=== PATIENT | female | born 1995 | race Caucasian/White ===

== ENCOUNTER 2017-05-06 17:05 | Observation (INO) | payer OTHER | END 2017-05-06 18:15 | disposition home or self-care (01) | LOC: INTOOBSV 17:05 → L&D 17:05 | PROVIDERS: ADMIT Obstetrics & Gynecology; ATTEND Obstetrics & Gynecology | DX: O26.893 Other specified pregnancy related conditions, third trimester (principal); R10.9 Unspecified abdominal pain; Z3A.35 35 weeks gestation of pregnancy | CPT/HCPCS: 76805; G0378; 76815 ==

== ENCOUNTER 2017-05-18 01:34 | Inpatient (IN) | payer OTHER ==
[~2017-05-18] VITALS: Ht 154.9 cm; Wt 82.6 kg
[2017-05-18] MEDS ORDERED: LACTATED RINGERS 1,000 ML IV SCH (03:13)
[2017-05-18] MEDS ORDERED: PREN1TAB78 PO (03:14)
[2017-05-18] MEDS ORDERED: MAGN400C PO (03:14)
[2017-05-18] MEDS ORDERED: LIDOCAINE HCL 1% 20ML VIAL (Pyxis) INJ INFIL SCH (03:15)
[2017-05-18] MEDS ORDERED: BUTORPHANOL TARTRATE 2 MG/ML VIAL IV PRN (03:15)
[2017-05-18] MEDS ORDERED: CARBOPROST TROMETHAMINE 250 MCG/ML AMPUL IM PRN (03:15)
[2017-05-18] MEDS ORDERED: NALOXONE HCL 0.4 MG/ML 1ML VIAL IM PRN (03:15)
[2017-05-18] MEDS ORDERED: METHYLERGONOVINE MALEATE 0.2 MG/ML IM PRN (03:15)
[2017-05-18 04:07] LABS: BASOPHILS % 0.4 % (0.0-2.0); EOSINOPHILS % 0.5 % (0.0-5.0); HEMOGLOBIN. 11.7 g/dL (12.0-16.0); LYMPHOCYTES % 32.1 % (20.0-50.0); MEAN CORPUSCULAR HEMOGLOBIN 30.3 pg (28.0-32.0); MEAN CORPUSCULAR VOLUME 90.5 fL (81.0-99.0); MEAN PLATELET VOLUME 8.9 fl (7.4-10.4); MONOCYTES % 7.1 % (2.0-8.0); NEUTROPHILS % 59.9 % (40.0-76.0); PLATELET 203 x1000/uL (130-400); RED BLOOD CELL COUNT 3.87 mill/uL (4.2-5.4); RED CELL DISTRIBUTION WIDTH 13.9 % (11.6-14.6)
[2017-05-18 04:14] LABS: CLARITY URINE CLEAR (CLEAR); COLOR URINE YELLOW (YELLOW); GLUCOSE URINE NEGATIVE (NEGATIVE); KETONES URINE NEGATIVE (NEGATIVE); LEUKOCYTE ESTERASE URINE TRACE (NEGATIVE); NITRITE URINE NEGATIVE (NEGATIVE); OCCULT BLOOD URINE 1+ (NEGATIVE); PH URINE 6.5 (4.5-8.0); PROTEIN URINE NEGATIVE (NEGATIVE); SPECIFIC GRAVITY URINE 1.012 (1.005-1.030); UROBILINOGEN URINE 0.2 E.U./dL (0.2-1.0)
[2017-05-18 04:21] LABS: PARTIAL THROMBOPLASTIN TIME 28.7 sec (23.4-31.0); PROTHROMBIN TIME 10.1 sec (9.4-11.6)
[2017-05-18 04:37] LABS: *AMPHETAMINES SCREEN URINE NEGATIVE (NEGATIVE); *BARBITURATES SCREEN URINE NEGATIVE (NEGATIVE); *BENZODIAZEPINES SCREEN URINE NEGATIVE (NEGATIVE); *COCAINE SCREEN URINE NEGATIVE (NEGATIVE); CANNABINOID URINE SCREEN NEGATIVE (NEGATIVE); METHADONE URINE SCREEN NEGATIVE (NEGATIVE); OPIATES URINE SCREEN NEGATIVE (NEGATIVE); PHENCYCLIDINE URINE SCREEN NEGATIVE (NEGATIVE)
[2017-05-18] MEDS: DEXT 5%/LR + PITOCIN 20UNITS/L 1,000 ML IV SCH ×2 (04:45→06:02)
[2017-05-18] MEDS ORDERED: DEXT 5%/LR + PITOCIN 20UNITS/L 1,000 ML IV SCH (05:41)
[2017-05-18] MEDS ORDERED: LANOLIN OINT 0.25 GM TUBE TOP PRN (05:45)
[2017-05-18] MEDS ORDERED: IBUPROFEN 400MG TABLET PO PRN (05:45)
[2017-05-18] MEDS ORDERED: GLYCERIN/WITCH HAZEL LEAF MEDICATED PAD TOP PRN (05:45)
[2017-05-18] MEDS ORDERED: BENZOCAINE/LANOLIN/ALOE VERA SPRAY TOP PRN (05:45)
[2017-05-18] MEDS ORDERED: ACETAMINOPHEN WITH CODEINE 300/30MG TABLET PO PRN ×2 (05:45)
[2017-05-18 08:05] VITALS: BP 119/63
[2017-05-18] MEDS: SIMETHICONE 80MG TABLET CHEW PO SCH ×4 (08:20→20:22)
[2017-05-18] MEDS: MAGNESIUM/ALUMINUM HYDROXIDE/SIMETHICONE 30ML UDC PO SCH ×3 (08:20→20:21)
[2017-05-18 08:38] VITALS: BP 106/66
[2017-05-18] MEDS: PRENATAL VIT/FE FUMARATE/FA TABLET PO SCH (08:47)
[2017-05-18 09:00] VITALS: BP 106/66
[2017-05-18] MEDS ORDERED: BISACODYL 10MG SUPP PR PRN (09:00)
[2017-05-18 13:00] LABS: HEPATITIS B SURFACE ANTIGEN NEGATIVE; RUBELLA IGG 28.1 IU/mL (4.99-10)
[2017-05-18 16:45] VITALS: BP 114/61
[2017-05-18 20:00] VITALS: BP 111/69
[2017-05-18] MEDS: DOCUSATE SODIUM 100MG CAPSULE PO SCH (20:20)
[2017-05-19 05:00] VITALS: BP 108/68
[2017-05-19 06:55] LABS: BASOPHILS % 0.6 % (0.0-2.0); EOSINOPHILS % 0.6 % (0.0-5.0); HEMATOCRIT. 33.1 % (36.0-48.0); HEMOGLOBIN. 11.1 g/dL (12.0-16.0); LYMPHOCYTES % 39.1 % (20.0-50.0); MEAN CORPUSCULAR HEMOGLOBIN 30.7 pg (28.0-32.0); MEAN CORPUSCULAR VOLUME 91.6 fL (81.0-99.0); MEAN PLATELET VOLUME 8.2 fl (7.4-10.4); MONOCYTES % 4.1 % (2.0-8.0); NEUTROPHILS % 55.6 % (40.0-76.0); PLATELET 190 x1000/uL (130-400); RED BLOOD CELL COUNT 3.61 mill/uL (4.2-5.4); RED CELL DISTRIBUTION WIDTH 14.2 % (11.6-14.6)
[2017-05-19 07:50] VITALS: BP 112/72
[2017-05-19] MEDS: SIMETHICONE 80MG TABLET CHEW PO SCH ×4 (08:20→21:13)
[2017-05-19] MEDS: PRENATAL VIT/FE FUMARATE/FA TABLET PO SCH (08:20)
[2017-05-19] MEDS: MAGNESIUM/ALUMINUM HYDROXIDE/SIMETHICONE 30ML UDC PO SCH ×3 (08:20→18:03)
[2017-05-19] MEDS: FERROUS SULFATE 325MG TABLET PO SCH ×2 (13:01→18:03)
[2017-05-19 15:50] VITALS: BP 114/76
[2017-05-19 20:00] VITALS: BP 119/68
[2017-05-19] MEDS: DOCUSATE SODIUM 100MG CAPSULE PO SCH (21:13)
[2017-05-20 00:13] VITALS: BP 103/59
[2017-05-20 07:52] VITALS: BP 118/71
[2017-05-20] MEDS: PRENATAL VIT/FE FUMARATE/FA TABLET PO SCH (08:37)
[2017-05-20] MEDS: FERROUS SULFATE 325MG TABLET PO SCH (08:37)
== END 2017-05-20 11:00 | disposition home or self-care (01) | DRG 560 ==
LOC: L&D 01:34 → OBSVTOIN 01:34 → 7EST PP/OB 08:26
PROVIDERS: ADMIT Obstetrics & Gynecology; ATTEND Obstetrics & Gynecology
PROC: 0KQM0ZZ Repair Perineum Muscle, Open Approach (ICD-10-PCS; 2017-05-18)
PROC: 10E0XZZ Delivery of Products of Conception, External Approach (ICD-10-PCS; principal; 2017-05-18 04:35)
DX: O70.1 Second degree perineal laceration during delivery (principal); Z37.0 Single live birth; Z3A.39 39 weeks gestation of pregnancy
CPT/HCPCS: 36415; 80305; 81001; 85025; 85610; 85730; 86592; 86703; 86762; 86850; 86900; 87340; 99281; J0595; J2590; J3490; J7120

== ENCOUNTER 2019-07-11 13:17 | Observation (INO) | payer MEDICAID ==
[~2019-07-11] VITALS: Ht 154.9 cm; Wt 77.6 kg
[~2019-07-11 13:17] MED LIST: MAGN400C PO; PREN1TAB78 PO
== END 2019-07-11 15:00 | disposition home or self-care (01) ==
LOC: 8 EST LDRP 13:17
PROVIDERS: ADMIT Obstetrics & Gynecology; ATTEND Obstetrics & Gynecology
DX: O60.03 Preterm labor without delivery, third trimester (principal); Z3A.39 39 weeks gestation of pregnancy
CPT/HCPCS: 99281; G0378

== ENCOUNTER 2019-07-17 00:34 | Inpatient (IN) | payer MEDICAID, OTHER ==
[~2019-07-17] VITALS: Ht 154.9 cm; Wt 76.2 kg
[~2019-07-17 00:34] MED LIST changes: -MAGN400C PO
[2019-07-17] MEDS ORDERED: DEXT 5%/LR + PITOCIN 20UNITS/L 1,000 ML IV SCH ×2 (01:26→05:21)
[2019-07-17] MEDS ORDERED: LACTATED RINGERS 1,000 ML IV SCH (01:26)
[2019-07-17] MEDS ORDERED: LIDOCAINE HCL 1% 20ML VIAL (Pyxis) INJ INFIL SCH (01:30)
[2019-07-17] MEDS ORDERED: BUTORPHANOL TARTRATE 2 MG/ML VIAL IV PRN (01:30)
[2019-07-17] MEDS ORDERED: METHYLERGONOVINE MALEATE 0.2 MG/ML IM PRN (01:30)
[2019-07-17] MEDS ORDERED: CARBOPROST TROMETHAMINE 250 MCG/ML AMPUL IM PRN (01:30)
[2019-07-17] MEDS ORDERED: MISOPROSTOL 100MCG TABLET VG PRN (01:30)
[2019-07-17] MEDS ORDERED: PRENATAL VITAMINS (02:05)
[2019-07-17 02:31] LABS: BASOPHILS % 0.2 % (0.0-2.0); EOSINOPHILS % 0.6 % (0.0-5.0); HEMOGLOBIN. 12.3 g/dL (12.0-16.0); LYMPHOCYTES % 49.2 % (20.0-50.0); MEAN CORPUSCULAR HEMOGLOBIN 30.9 pg (28.0-32.0); MEAN CORPUSCULAR VOLUME 92.7 fL (81.0-99.0); MEAN PLATELET VOLUME 9.6 fl (7.4-10.4); MONOCYTES % 6.5 % (2.0-8.0); NEUTROPHILS % 43.5 % (40.0-76.0); PLATELET 204 x1000/uL (130-400); RED BLOOD CELL COUNT 3.99 mill/uL (4.2-5.4); RED CELL DISTRIBUTION WIDTH 13.5 % (11.6-14.6)
[2019-07-17 02:37] LABS: INR 0.9; PARTIAL THROMBOPLASTIN TIME 30.3 sec (23.4-31.0); PROTHROMBIN TIME 9.6 sec (9.6-11.0)
[2019-07-17 02:38] LABS: CLARITY URINE CLEAR (CLEAR); COLOR URINE YELLOW (YELLOW); KETONES URINE NEGATIVE (NEGATIVE); LEUKOCYTE ESTERASE URINE NEGATIVE (NEGATIVE); NITRITE URINE NEGATIVE (NEGATIVE); OCCULT BLOOD URINE NEGATIVE (NEGATIVE); PROTEIN URINE NEGATIVE (NEGATIVE); SPECIFIC GRAVITY URINE 1.014 (1.005-1.030); UROBILINOGEN URINE 0.2 E.U./dL (0.2-1.0)
[2019-07-17 03:06] LABS: HEPATITIS B SURFACE ANTIGEN NEGATIVE
[2019-07-17 03:17] LABS: *BARBITURATES SCREEN URINE NEGATIVE (NEGATIVE)
[2019-07-17 03:18] LABS: *BENZODIAZEPINES SCREEN URINE NEGATIVE (NEGATIVE); *COCAINE SCREEN URINE NEGATIVE (NEGATIVE); CANNABINOID URINE SCREEN NEGATIVE (NEGATIVE); METHADONE URINE SCREEN NEGATIVE (NEGATIVE); OPIATES URINE SCREEN NEGATIVE (NEGATIVE); PHENCYCLIDINE URINE SCREEN NEGATIVE (NEGATIVE)
[2019-07-17 03:19] LABS: *AMPHETAMINES SCREEN URINE NEGATIVE (NEGATIVE)
[2019-07-17] MEDS ORDERED: RHO(D) IMMUNE GLOBULIN 300 MCG/SYR IM PRN (05:30)
[2019-07-17] MEDS ORDERED: IBUPROFEN 800MG TABLET PO PRN (05:30)
[2019-07-17] MEDS ORDERED: IBUPROFEN 400MG TABLET PO PRN (05:30)
[2019-07-17 06:30] VITALS: BP 109/66
[2019-07-17 11:00] VITALS: BP 112/72
[2019-07-17 16:48] VITALS: BP 109/72
[2019-07-17 20:00] VITALS: BP 104/70
[2019-07-18 04:15] VITALS: BP 105/70
[2019-07-18 07:03] LABS: BASOPHILS % 0.3 % (0.0-2.0); EOSINOPHILS % 0.6 % (0.0-5.0); HEMATOCRIT. 34.5 % (36.0-48.0); HEMOGLOBIN. 11.5 g/dL (12.0-16.0); MEAN CORPUSCULAR HEMOGLOBIN 30.8 pg (28.0-32.0); MEAN CORPUSCULAR VOLUME 92.9 fL (81.0-99.0); MEAN PLATELET VOLUME 8.9 fl (7.4-10.4); MONOCYTES % 6.2 % (2.0-8.0); NEUTROPHILS % 54.9 % (40.0-76.0); PLATELET 177 x1000/uL (130-400); RED BLOOD CELL COUNT 3.72 mill/uL (4.2-5.4); RED CELL DISTRIBUTION WIDTH 13.8 % (11.6-14.6)
[2019-07-18] MEDS ORDERED: TETANUS, DIPHTHERIA, PERTUSSIS VAC/PF 0.5ML (>7YR OLD) IM ONE (08:00)
[2019-07-18 09:00] VITALS: BP 108/68
[2019-07-18] MEDS ORDERED: INFLUENZA VIRUS VACCINE(AFLURIA) 0.5ML SYR IM ONE (10:00)
[2019-07-18 17:00] VITALS: BP 106/67
[2019-07-18 19:05] VITALS: BP 115/77
[2019-07-19 03:20] VITALS: BP 106/72
[2019-07-19] MEDS ORDERED: FERR325T6 MT (05:27)
[2019-07-19] MEDS ORDERED: IBUP-2029 MT (05:27)
[2019-07-19 07:42] VITALS: BP 108/72
== END 2019-07-19 10:30 | disposition home or self-care (01) | DRG 560 ==
LOC: OBSVTOIN 00:34 → 8 EST LDRP 00:34 → 8EST 06:30
PROVIDERS: ADMIT Obstetrics & Gynecology; ATTEND Obstetrics & Gynecology
PROC: 10E0XZZ Delivery of Products of Conception, External Approach (ICD-10-PCS; principal; 2019-07-17)
DX: O48.0 Post-term pregnancy (principal); Z37.0 Single live birth; Z3A.41 41 weeks gestation of pregnancy; Z91.018 Allergy to other foods
CPT/HCPCS: 36415; 80305; 81003; 86592; 86703; 86762; 86850; 86900; 87340; 90686; 90715; G0378; J0595; J2590; J3490